=== PATIENT | female | born 1950 | race Caucasian/White ===

== ENCOUNTER → 2017-01-07 | Outpatient (CLI) | payer MEDICARE ==
[~2017-01-07] MED LIST: BUPR-173 PO; ERGO500017 PO; LISI-170 PO; NAPR220C2 PO; [UNRECOGNIZED DRUG - OTHER] PO
== END | disposition home or self-care (01) ==
LOC: STAR 09:38
PROVIDERS: ATTEND Specialist
DX: Z01.818 Encounter for other preprocedural examination (principal); R94.31 Abnormal electrocardiogram [ECG] [EKG]; N85.00 Endometrial hyperplasia, unspecified; N95.0 Postmenopausal bleeding; E66.01 Morbid (severe) obesity due to excess calories; Z88.8 Allergy status to other drugs, medicaments and biological substances
CPT/HCPCS: 93005

== ENCOUNTER 2017-01-12 10:10 | Day surgery (SDC) | payer MEDICARE ==
[2017-01-07 10:22] VITALS: BP 119/89
[~2017-01-12] VITALS: Ht 160 cm; Wt 102.6 kg
[2017-01-12] MEDS ORDERED: LACTATED RINGERS 1,000 ML IV SCH (10:29)
[2017-01-12] MEDS ORDERED: LIDOCAINE 1%, 2ML SQ PRN (10:30)
[2017-01-12 10:31] VITALS: BP 119/89
[2017-01-12 11:33] LABS: ASPARTATE AMINO TRANSFERASE 20 U/L (15-37); BLOOD UREA NITROGEN 13 mg/dL (7-18)
[2017-01-12] MEDS ORDERED: BUPIVACAINE/PF 0.25% ONE (12:21)
[2017-01-12] MEDS ORDERED: MISOPROSTOL 200 MCG TABLET ONE (12:21)
[2017-01-12] MEDS ORDERED: OXYTOCIN 10 UNITS/ML, 1ML ONE (12:22)
[2017-01-12] MEDS ORDERED: EPINEPHRINE 1 MG/ML, 1ML ONE (12:22)
[2017-01-12] MEDS ORDERED: METHYLERGONOVINE 0.2 MG/ML IM ONE (12:22)
[2017-01-12] MEDS ORDERED: LIDOCAINE-MPF 2% ,5ML ONE (13:11)
[2017-01-12] MEDS ORDERED: MIDAZOLAM 1 MG/ML, 2ML ONE (13:11)
[2017-01-12] MEDS ORDERED: FENTANYL PF 100 MCG/2ML ONE (13:11)
[2017-01-12] MEDS ORDERED: METOPROLOL 1 MG/ML, 5ML IV PRN (13:30)
[2017-01-12] MEDS ORDERED: hydrALAzine 20 MG/ML, 1ML IV PRN (13:30)
[2017-01-12] MEDS ORDERED: MEPERIDINE/PF 25MG/0.5ML IVPush PRN (13:30)
[2017-01-12] MEDS ORDERED: ALBUTEROL SULFATE 2.5 MG/3 ML NPPB PRN (13:30)
[2017-01-12] MEDS ORDERED: HYDROmorphone 1 MG/ML, 1ML IV PRN (13:30)
[2017-01-12] MEDS ORDERED: OXYcodone 5 MG/5 ML ORAL.SOL UDC PO PRN (13:30)
[2017-01-12] MEDS ORDERED: PROMETHAZINE 25 MG/ML, 1ML IV PRN (13:30)
[2017-01-12] MEDS ORDERED: ACETAMINOPHEN 325 MG TABLET PO PRN (13:30)
[2017-01-12] MEDS ORDERED: FENTANYL PF 100 MCG/2ML IV PRN (13:30)
[2017-01-12] MEDS ORDERED: MIDAZOLAM 1 MG/ML, 2ML IV PRN (13:30)
[2017-01-12] MEDS ORDERED: ONDANSETRON 2MG/ML, 2ML ONE (13:33)
[2017-01-12] MEDS ORDERED: SUCCINYLCHOLINE 20 MG/ML, 10ML ONE (13:33)
[2017-01-12] MEDS ORDERED: GLYCOPYRROLATE 0.2MG/1ML, 5ML ONE (13:33)
[2017-01-12] MEDS ORDERED: DEXAMETHASONE 4 MG/ML, 1ML ONE (13:33)
[2017-01-12] MEDS ORDERED: ROCURONIUM 10 MG/ML ONE (13:33)
[2017-01-12] MEDS ORDERED: CEFAZOLIN 1,000 MG ONE (13:33)
[2017-01-12] MEDS ORDERED: NEOSTIGMINE 1 MG/ML, 10ML ONE (13:33)
[2017-01-12] MEDS ORDERED: PROPOFOL 10 MG/ML, 20ML ONE (13:33)
[2017-01-12] MEDS ORDERED: KETOROLAC 30 MG/1 ML ONE (14:01)
[2017-01-12] MEDS ORDERED: KETOROLAC 30 MG/1 ML IV ONE (14:30)
== END 2017-01-12 15:40 ==
LOC: OUT 10:10
PROVIDERS: ATTEND Specialist
DX: N95.0 Postmenopausal bleeding (principal); N84.0 Polyp of corpus uteri; F32.9 Major depressive disorder, single episode, unspecified; I10 Essential (primary) hypertension; Z88.5 Allergy status to narcotic agent; Z88.0 Allergy status to penicillin; Z88.8 Allergy status to other drugs, medicaments and biological substances; E66.9 Obesity, unspecified; Z68.41 Body mass index [BMI] 40.0-44.9, adult
CPT/HCPCS: 36415; 58120; 80053; 88305; J0690; J1100; J1885; J2250; J2405; J2704; J3010; J3490; J7120; J0171; J2710; J0330; J2210; J2590